=== PATIENT | female | born 1990 | race Two or more races ===

== ENCOUNTER 2021-06-25 08:59 | Outpatient (REF) | payer MEDICAID, SELFPAY ==
[2021-06-25 09:25] LABS: MANUAL DIFF FLAG NO
[2021-06-25 09:45] LABS: Basophils Absolute Auto 0.1 X10*3/uL (0.0-0.2); Eosinophils Absolute Auto 0.6 X10*3/uL (0.0-0.4); Eosinophils Percent Auto 9.8 % (0-4); Hemoglobin 13.4 g/dl (12.0-16.0); Imm Gran Abs Auto 0.02 X10*3/uL (0.00-0.03); Imm Gran Pct Auto 0.3 % (0.0-0.4); Lymphocytes Absolute Auto 1.7 X10*3/uL (1.2-4.9); Lymphocytes Percent Auto 28.5 % (20-40); Mean Corpuscular HGB Conc 32.7 g/dl (31.0-35.0); Mean Corpuscular Volume 85.6 fL (80.0-98.0); Monocytes Absolute Auto 0.4 X10*3/uL (0.1-1.2); Monocytes Percent Auto 6.4 % (2-11); Neutrophils Absolute Auto 3.3 x10*3/uL (2.0-8.3); Platelet Count 272 X10*3/uL (160-400); Red Blood Count 4.79 X10*6/uL (4.20-5.50); Red Cell Distribution Width 12.2 % (11.0-16.0); White Blood Count 6.1 X10*3/uL (4.8-10.8)
[2021-06-25 10:06] LABS: Alanine Aminotransferase 24 U/L (0-31); Albumin Level 3.9 g/dL (3.5-5.0); Alkaline Phosphatase 58 U/L (39-117); Anion Gap 12 (12-20); Aspartate Amino Transferase 17 U/L (5-31); Bilirubin Total 0.7 mg/dL (0.0-1.0); Blood Urea Nitrogen 7 mg/dL (9-16); Calcium 9.3 mg/dL (8.4-10.2); Carbon Dioxide 25 mmol/L (22-29); Chloride 104 mmol/L (96-108); Cholesterol 197 mg/dL; Estimated Glomerular Filt Rate > 60; Glucose Random 160 mg/dL (60-115); HDL Cholesterol 39 mg/dL; LDL Cholesterol Calculated 133 mg/dl; Sodium 137 mmol/L (135-145); Total Protein 7.2 g/dL (6.5-8.0); Triglycerides 127 mg/dL
[2021-06-25 10:28] LABS: Thyroid Stimulating Hormone 0.66 uIU/mL (0.32-4.0)
[2021-06-29 13:31] LABS: Glutamic acid decarboxylase Ab <5 IU/mL (<5)
== END 2021-06-25 09:00 | disposition home or self-care (01) ==
LOC: HO.LAB 08:59
PROVIDERS: PCP Internal Medicine; Visit Provider Internal Medicine
DX: Z00.01 Encounter for general adult medical examination with abnormal findings (principal); Z13.31 Encounter for screening for depression; E11.65 Type 2 diabetes mellitus with hyperglycemia; J45.909 Unspecified asthma, uncomplicated; R00.0 Tachycardia, unspecified
CPT/HCPCS: 36415; 80053; 80061; 84443; 85025; 86341

== ENCOUNTER 2021-09-16 11:13 | Outpatient (REF) | payer MEDICAID, SELFPAY ==
--- NOTE | ~2021-09-16 | XR_ITS ---
EXAMINATION: XR HIP, LEFT XR HIP, RIGHT XR PELVIS CLINICAL INFORMATION: Pain. COMPARISON: None TECHNIQUE: AP pelvis one view. 2 views each hip. FINDINGS: PELVIS: There is normal symmetry of SI joints and hip joints. There is solitary nail traversing the femoral neck on each side. No pelvic bone fracture seen. The soft tissues are normal. RIGHT HIP: There is solitary nail traversing the right femoral neck. No acute fracture seen. The soft tissues are normal. The joint space is maintained normal. LEFT HIP: There is a solitary nail traversing the left femoral neck. No visible acute fracture or dislocation seen. The soft tissues are normal. XR/XR pelvis 1-2V IMPRESSION: There is normal symmetry of bilateral SI joints and hip joints. There is a solitary nail traversing the femoral neck on each side for old healed fractures. No fracture line is seen at this time. There is no dislocation. The soft tissues are normal.
--- NOTE | ~2021-09-16 | XR_ITS ---
EXAMINATION: XR HIP, LEFT XR HIP, RIGHT XR PELVIS CLINICAL INFORMATION: Pain. COMPARISON: None TECHNIQUE: AP pelvis one view. 2 views each hip. FINDINGS: PELVIS: There is normal symmetry of SI joints and hip joints. There is solitary nail traversing the femoral neck on each side. No pelvic bone fracture seen. The soft tissues are normal. RIGHT HIP: There is solitary nail traversing the right femoral neck. No acute fracture seen. The soft tissues are normal. The joint space is maintained normal. LEFT HIP: There is a solitary nail traversing the left femoral neck. No visible acute fracture or dislocation seen. The soft tissues are normal. XR/XR hip RT min 2V IMPRESSION: There is normal symmetry of bilateral SI joints and hip joints. There is a solitary nail traversing the femoral neck on each side for old healed fractures. No fracture line is seen at this time. There is no dislocation. The soft tissues are normal.
--- NOTE | ~2021-09-16 | XR_ITS ---
EXAMINATION: XR HIP, LEFT XR HIP, RIGHT XR PELVIS CLINICAL INFORMATION: Pain. COMPARISON: None TECHNIQUE: AP pelvis one view. 2 views each hip. FINDINGS: PELVIS: There is normal symmetry of SI joints and hip joints. There is solitary nail traversing the femoral neck on each side. No pelvic bone fracture seen. The soft tissues are normal. RIGHT HIP: There is solitary nail traversing the right femoral neck. No acute fracture seen. The soft tissues are normal. The joint space is maintained normal. LEFT HIP: There is a solitary nail traversing the left femoral neck. No visible acute fracture or dislocation seen. The soft tissues are normal. XR/XR hip LT min 2V IMPRESSION: There is normal symmetry of bilateral SI joints and hip joints. There is a solitary nail traversing the femoral neck on each side for old healed fractures. No fracture line is seen at this time. There is no dislocation. The soft tissues are normal.
== END 2021-09-16 11:14 | disposition home or self-care (01) ==
LOC: HO.HOSX 11:13
PROVIDERS: Visit Provider Physician Assistant
DX: M70.61 Trochanteric bursitis, right hip (principal); M25.552 Pain in left hip; Z96.9 Presence of functional implant, unspecified
CPT/HCPCS: 72170; 73502; 99202

== ENCOUNTER 2021-09-26 12:09 | Emergency (ER) | payer MEDICAID, SELFPAY ==
[2021-09-26 12:16] VITALS: BP 131/94; PULSE 100; RESP 12; TEMP 36.6; O2SAT 98; BMI 25.4
--- NOTE | 2021-09-26 14:23 | ED.WOUNDLAC ---
HPI - Wound/Laceration General Chief Complaint: Wound/Laceration Stated Complaint: FINGER LAC Time Seen by Provider: 09/26/21 13:45 Source: patient Mode of arrival: ambulatory Limitations: no limitations Related Data Home Medications Medication Instructions Recorded Confirmed glipizide 10 mg tablet 10 mg PO BID 09/16/21 metformin 1,000 mg tablet 1,000 mg PO BID 09/16/21 Allergies Allergy/AdvReac Type Severity Reaction Status Date / Time No Known Allergies Allergy Verified 09/16/21 11:14 Review of Systems Review of Systems: Constitutional: No Weight loss, No Fever, No Chills ENT/Mouth: No Ear Pain, No Nasal Congestion, No Sinus Pain, No Hoarseness, No sore throat, No Rhinorrhea, No Swallowing Difficulty Cardiovascular: No Chest Pain, No SOB Respiratory: No Cough, No Sputum, No Wheezing Gastrointestinal: No Nausea, No Vomiting, No Diarrhea, No Constipation, No Abdominal pain Genitourinary: No Dysuria, No Urinary Frequency, No Hematuria, No Urinary Incontinence/retention, No Urgency, No Flank Pain Musculoskeletal: No joint pain, No Myalgias, No Joint Swelling Skin: No Skin Lesions, No rash Neuro: No Weakness, No Numbness, No Paresthesias Yes all other systems are reviewed and are negative Constitutional: Constitutional: Reports as per [facility] Past Medical History Attestation statement: The following information was validated with the patient. Medical History (Updated 09/16/21 @ 21:55 by Kristen Modi PA-C) Diabetes Surgical History (Updated 09/16/21 @ 11:13 by COTY Pena) History of hip surgery Physical Exam Vital Signs: Vital Signs: Last Vital Signs Temp 98 F 09/26/21 12:16 Pulse 100 09/26/21 12:16 Resp 12 09/26/21 12:16 BP 131/94 H 09/26/21 12:16 Pulse Ox 98 09/26/21 12:16 BMI result Body Mass Index 25.4 Const: General: cooperative, healthy appearing and no acute distress Orientation/consciousness: patient oriented x3 Limitations: no limitations HEENT: Head: Yes normal to inspection and Yes atraumatic Ears: hearing grossly normal bilaterally General nose exam: Normal external nose present Face and sinus: Yes normal facial exam Eyes: General: appearance normal, both eyes and all related structures EOM: EOMs intact bilaterally Neck: Neck: Yes normal visual inspection and Yes no meningeal signs Resp: Effort & Inspection: normal respiratory effort and no respiratory distress Auscultation: clear to auscultation bilaterally Cardio: Rate: regular rate Heart sounds: S1 normal heart sound present and S2 normal heart sound present Skin: Rashes: no rashes Wounds: no wounds Neuro: General: patient oriented x3, tone normal and no meningeal signs Gait exam (Neuro): Normal gait present Extrem: General: Yes normal to inspection MDM - Wound/Laceration Medical Records Attestation: I reviewed the patient's medical records. Lab Data Attestation: I reviewed the patient's lab results. Discharge Plan Discharge Prescriptions: No Action metformin 1,000 mg tablet 1,000 mg PO BID glipizide 10 mg tablet 10 mg PO BID
[2021-09-26] MEDS: Acetaminophen 325 MG TABLET 975 MG PO (14:35)
[2021-09-26] MEDS: Lidocaine HCl 1 % MPF 5 ML VIAL SUBCUT ×2 (14:35→14:36)
--- NOTE | 2021-09-26 15:20 | ED.WOUNDLAC ---
HPI - Wound/Laceration General Chief Complaint: Wound/Laceration Stated Complaint: FINGER LAC Time Seen by Provider: 09/26/21 13:45 Source: patient, family ( at bedside) and RN notes reviewed Limitations: no limitations History of Present Illness HPI narrative: This is a 30-year-old female, with a past medical history of diabetes, presents today with a right finger laceration which occurred 3 hours ago. She reports that she was washing her dishes and accidentally lacerated the webspace between the 4th and 5th digit of her right hand on a glass elo jar. She reports that she is able to move her finger and her hand without difficulty. She reports that she has sensation in her hand and good oracle hrms developer strength. She states that she is up-to-date with her tetanus vaccination. No other complaints or concerns at this time. Onset (ago): hour(s) Location: other Extremity Location: right: hand Place: home Patient tetanus UTD: Yes Context: accidental Associated symptoms: pain Related Data Home Medications Medication Instructions Recorded Confirmed glipizide 10 mg tablet 10 mg PO BID 09/16/21 metformin 1,000 mg tablet 1,000 mg PO BID 09/16/21 Previous Rx's Medication Instructions Recorded cephalexin 500 mg capsule 500 mg PO Q6H 7 days #28 caps 09/26/21 Allergies Allergy/AdvReac Type Severity Reaction Status Date / Time No Known Allergies Allergy Verified 09/16/21 11:14 Review of Systems Review of Systems: Constitutional : No Fever, No Chills, Cardiovascular : No Chest Pain, No SOB Respiratory : No Dyspnea Gastrointestinal : No abdominal pain Musculoskeletal : No Joint Swelling Skin : positive skin laceration, No Foreign bodies, No rash, No surrounding erythema Neuro : No Weakness, No Numbness/tingling Psych : No SI/HI/thoughts of self injury Yes all other systems are reviewed and are negative PMFSH Past Medical History Attestation statement: The following information was validated with the patient. Source: old records reviewed and obtained from family Medical History Diabetes Surgical History History of hip surgery Social History Social History Advance Directives: No Advance Directives Information Provided: No Physical Exam Vital Signs: Vital Signs: Last Vital Signs Temp 98 F 09/26/21 12:16 Pulse 100 09/26/21 12:16 Resp 12 09/26/21 12:16 BP 131/94 H 09/26/21 12:16 Pulse Ox 98 09/26/21 12:16 BMI result Body Mass Index 25.4 vital signs have been reviewed as normal and appeared to be correct. Blood pressure 131/94 Heart rate normal. Respiration rate normal. Temperature normal. Oxygen saturation normal. Appearance: Alert. Oriented X3. No acute distress. Head: Normal external exam. Normocephalic. Atraumatic. Eyes: PERRLA. EOMI. Conjunctiva and sclera normal. Eyelids normal. ENT: Pharynx normal. Uvula midline. Moist mucous membranes. Neck: Normal inspection. Neck supple. FROM. CVS: Normal heart rate and rhythm. Respiratory: No respiratory distress. Painless inspiration. Skin: Skin warm and dry. Normal skin color. Normal skin turgor. No rashes/lesions/lacerations noted. Extremities: To right hand between the 4th and 5th webspace patient has a 2 cm intermediate laceration. No active bleeding or foreign bodies or bony tenderness or obvious ligamentous or tendon injury noted. She has full range of motion of all fingers. Otherwise all other extremities exhibit normal range of motion nontender. Neuro: Oriented X 3. No motor deficit. No sensory deficit. Reflexes normal. Normal steady gait. No focal neuro deficits noted. Vascular: + radial pulses/+ 2 distal pedal pulses/+2 dorsalis pedis b/l. Normal cap refill. No cyanosis noted to upper extremity nails and lower extremity toes nails. Course Course Course Narrative: Patient now status post laceration repair with 4 simple running stitch. Tetanus is up-to-date no need to update at this time. No imaging indicated at this time. Will DC home with symptomatic treatment antibiotics along with instructions to return in 10-14 days for suture removal and to follow up prior if signs of infection. Patient understands agrees the plan. MDM - Wound/Laceration Medical Records Attestation: I reviewed the patient's medical records. Procedures Laceration Laceration 1: Site: hand Side (If applicable): right Size (cm): 2 Description: linear Depth: simple, single layer Local Anesthetic: lidocaine 1% Amount of anesthesia used (mL): 3 Pre-repair: wound explored, irrigated extensively and deep structures intact Skin layer closed with: nylon Size (cm): 4-0 Number of sutures: 4 Technique: simple, interrupted Discharge Plan Discharge Clinical Impression: Laceration Patient Disposition: Home, Self-Care Instructions: Care For Your Stitches (ED), Laceration (ED) Additional Instructions: Take the prescribed antibiotic as directed. You may return or follow up with primary care physician to have the sutures removed in 7-10 days. Keep wound clean and dry. Watch for any signs of infection including but not limited to fevers, chills, increased redness, or swelling. If any new or worsening symptoms occur, please return to be re-evaluated. Prescriptions: New cephalexin 500 mg capsule 500 mg PO Q6H 7 Days Qty: 28 0RF No Action metformin 1,000 mg tablet 1,000 mg PO BID glipizide 10 mg tablet 10 mg PO BID Interventions: ED Discharge Assessment Last Done: 09/26/21 15:49 Discharge Date/Time: 09/26/21 15:51
== END 2021-09-26 15:51 | disposition home or self-care (01) ==
PROVIDERS: Emergency Provider Emergency Medicine; PCP Internal Medicine
DX: S61.411A Laceration without foreign body of right hand, initial encounter (principal); W26.9XXA Contact with unspecified sharp object(s), initial encounter; Y93.9 Activity, unspecified; Y92.000 Kitchen of unspecified non-institutional (private) residence as the place of occurrence of the external cause; Y99.9 Unspecified external cause status; Z79.899 Other long term (current) drug therapy
CPT/HCPCS: 12001; 99283

== ENCOUNTER → 2021-10-29 11:51 | Outpatient (BNVA) | payer MEDICAID, SELFPAY | PROVIDERS: PCP Internal Medicine; Visit Provider Orthopaedic Surgery | DX: Z96.9 Presence of functional implant, unspecified (principal) | CPT/HCPCS: 99212 ==

== ENCOUNTER 2021-11-23 12:24 | Day surgery (SDC) | payer MEDICAID, SELFPAY ==
[2021-11-10 16:15] VITALS: BMI 25.4
--- NOTE | 2021-11-22 09:48 | P.CONAN_ITS ---
Documented by User: Mary Kate Smallwood NP 11/22/21 09:49 HPI - Anesthesia Eval Consult details Narrative: 31yo F for Right Removal Orthopedic Hardware hip PMFSH Active Problems Active Problems: All Active Problems (Updated 11/10/21 @ 16:15 by Zuri Gates RN) Trochanteric bursitis of right hip (Acute) Retained orthopedic hardware (Acute) Past Medical History Medical History (Updated 11/10/21 @ 16:15 by uZri Gates RN) Asthma Diabetes Hip pain, bilateral Surgical History Surgical History History of hip surgery Social History Social History Patient Tobacco Use Status: Former Tobacco user Tobacco use type: Cigarette Use of substances other than those prescribed or required for medical reasons: No Are you DNR?: No Advance Directives: No Advance Directives Information Provided: Yes Meds Allergies Allergy/AdvReac Type Severity Reaction Status Date / Time No Known Allergies Allergy Verified 11/10/21 16:09 Home Medications Medication Instructions Recorded Confirmed Last Taken Type glipizide 10 mg tablet 10 mg PO BID 09/16/21 11/10/21 Unknown History metformin 1,000 mg tablet 1,000 mg PO BID 09/16/21 11/10/21 Unknown History albuterol sulfate 90 mcg/actuation 2 puff inhalation QID PRN asthma 11/10/21 11/10/21 Unknown History aerosol inhaler (ProAir HFA) loratadine 10 mg tablet 1 tab PO DAILY 11/10/21 11/10/21 Unknown History Exam Exam Date and Time: November 22, 2021 0948 Height,Weight and Vital Signs: Height 5 ft Weight 58.967 kg Pertinent Lab Results Pertinent Lab Results: Laboratory Tests 06/25/21 06/25/21 09:24 09:24 WBC 6.1 Hgb 13.4 Hct 41.0 Plt Count 272 Sodium 137 Potassium 4.0 Chloride 104 Carbon Dioxide 25 BUN 7 L Creatinine 0.67 Assessment and Plan Assessment Anesthesia Assessment: Chart Reviewed Documented by User: Hardeep Casey MD 11/23/21 18:15 [facility] Past Medical History Medical History (Updated 11/10/21 @ 16:15 by Zuri Gates RN) Asthma Diabetes Hip pain, bilateral Functional capacity: independent ambulation Family History Family history of problems with anesthesia: No Surgical History Surgical History History of hip surgery History of Problems with Anesthesia: No Social History Social History Patient Tobacco Use Status: Former Tobacco user Tobacco use type: Cigarette Use of substances other than those prescribed or required for medical reasons: No Are you DNR?: No Advance Directives: No Advance Directives Information Provided: Yes Meds Allergies Allergy/AdvReac Type Severity Reaction Status Date / Time No Known Allergies Allergy Verified 11/10/21 16:09 Home Medications Medication Instructions Recorded Confirmed Last Taken Type glipizide 10 mg tablet 10 mg PO BID 09/16/21 11/10/21 Unknown History metformin 1,000 mg tablet 1,000 mg PO BID 09/16/21 11/10/21 Unknown History albuterol sulfate 90 mcg/actuation 2 puff inhalation QID PRN asthma 11/10/21 11/10/21 Unknown History aerosol inhaler (ProAir HFA) loratadine 10 mg tablet 1 tab PO DAILY 11/10/21 11/10/21 Unknown History Exam Airway Mallampati Class: III TM Dist: >3cm Neck ROM: Full Loose/Missing/Broken Teeth: Yes Heart: S1,S2 Lungs: b/l breath sounds Assessment and Plan Assessment Anesthesia Assessment: Anesthesia Plan Discussed Final Anesthetic Review Family History of Problems with Anesthesia: No History of Problems with Anesthesia: No NPO: Yes ASA Class: II Final Preanesthetic Review: Meds/Allgs Chart Reviewed, Consent Obtained/Reviewed and Anes Risks/Benef Reviewed Patient Risk: Intermediate Procedure Risk: Intermediate Anesthetic Plan Anesthetic Plan: GA Disposition: Standard PACU
[2021-11-23] VITALS (8 sets, daily range): BP systolic 91–127; BP diastolic 53–88; PULSE 93–120; RESP 16–18; TEMP 36.3–36.9; O2SAT 98–100; BMI 27.3
--- NOTE | ~2021-11-23 | FL_ITS ---
EXAMINATION: XR FLUOROSCOPY WITH IMAGES CLINICAL INFORMATION: Hardware removal COMPARISON: Radiographs pelvis and right hip 09/16/2021 TECHNIQUE: Fluoroscopy performed by Dr. Conner Scrhoeder. Fluoroscopy time: 0.1 minutes. Cumulative Dose: 1.39 mGy. DAP: 0.0241 Gy-cm2. Images: 2. FINDINGS: There is an orthopedic screw in the right hip. A clamp is directed at the screw head on one of the 2 views. FL/FL guidance in OR IMPRESSION: Fluoroscopy for orthopedic procedure.
[2021-11-23 13:05] LABS: UPreg QC Valid YES; Urine Pregnancy NEGATIVE (NEGATIVE)
[2021-11-23 13:09] LABS: Glucose, Whole Blood 145 mg/dL (60-115)
[2021-11-23] MEDS: Lactated Ringers 1,000 ML 100 ML IVCONT (13:19)
--- NOTE | 2021-11-23 15:49 | P.BOP_ITS ---
Brief Operative Note Date of Service: 11/23/21 Pre-op diagnosis: retained ortho hardware right femur Post-op diagnosis: same Procedure: removal of hardware right hip Implants: none Surgeon: Conner Schroeder MD Anesthesia: GETA and local Was an Mechanical Shovel Operator used for this Procedure?: No Estimated blood loss (mL): 5 IV fluids (mL): 300 Pathology: none sent Condition: stable Disposition: PACU
[2021-11-23] MEDS: Acetaminophen 325 MG TABLET 650 MG PO (16:43)
--- NOTE | 2021-11-24 07:32 | W.PM.OPN ---
Operative Note Operative Note Date of Service: 11/23/21 Narrative: Date of Service: 11/23/21 Pre-op diagnosis: retained ortho hardware right femur Post-op diagnosis: same Procedure: removal of hardware right hip Implants: none Surgeon: Conner Schroeder MD Anesthesia: GETA and local Was an Board Handler used for this Procedure?: No Estimated blood loss (mL): 5 IV fluids (mL): 300 Pathology: none sent Condition: stable Disposition: PACU Patient was brought to the operating room and placed supine on the surgical table. She was prepped and draped in standard sterile fashion and a time out was called to identify proper site, proper procedure and IV antibiotics per weight were administered. I began buy identifying the screw which was anterior and easily palpable. A 1 cm incision was made over the anterior thigh after local administration. I spread down to the screw. The screw head appeared to be a standard AO cannulated screw but upon closer inspection had an inner , smaller area for engagement. A wide variety of screw head were tried but none fit and the one that most closely fit openly began to strip the screw head with forceful attempts to remove it. Options at this point included making a much larger incision and using a trephine over the screw which, given the location of the screw, was not wallace. Cutting the screw head and shaft fluch to the cortex would have also required a larger incision and would not have allowed for removal of remaining hardware which the patient had indicated she would like to have done. The screw had been placed around 20 years ago and op notes are not available. The decision was made to leave the screw in place. The incision was closed with subq and absorbable suture and skin glue. Sterile dressings were applied. Patient was awakened from anesthesia and brought to the recovery room is stable conditions. There were no known complications.
== END 2021-11-23 17:15 | disposition home or self-care (01) ==
PROVIDERS: Nurse Practitioner; PCP Internal Medicine; Visit Provider Orthopaedic Surgery
PROC: (CPT 20680; principal; 2021-11-23 14:10)
DX: Z47.2 Encounter for removal of internal fixation device (principal); T84.84XA Pain due to internal orthopedic prosthetic devices, implants and grafts, initial encounter; G89.18 Other acute postprocedural pain; Y79.8 Miscellaneous orthopedic devices associated with adverse incidents, not elsewhere classified; Y92.9 Unspecified place or not applicable; Z96.9 Presence of functional implant, unspecified; J45.909 Unspecified asthma, uncomplicated; E11.9 Type 2 diabetes mellitus without complications; Z79.84 Long term (current) use of oral hypoglycemic drugs; Z79.899 Other long term (current) drug therapy; Z87.891 Personal history of nicotine dependence
CPT/HCPCS: 20680; 81025; 82947; J0690; J1100; J2250; J2370; J2405; J2795; J3010

== ENCOUNTER 2022-07-13 15:22 | Outpatient (REF) | payer MEDICAID, SELFPAY ==
[2022-07-13 15:36] LABS: MANUAL DIFF FLAG NO
[2022-07-13 16:51] LABS: Basophils Absolute Auto 0.1 X10*3/uL (0.0-0.2); Basophils Percent Auto 0.5 % (0-2); Eosinophils Absolute Auto 0.4 X10*3/uL (0.0-0.4); Eosinophils Percent Auto 3.8 % (0-4); Hematocrit 43.8 % (37.0-47.0); Hemoglobin 14.8 g/dl (12.0-16.0); Imm Gran Abs Auto 0.04 X10*3/uL (0.00-0.03); Imm Gran Pct Auto 0.4 % (0.0-0.4); Lymphocytes Absolute Auto 2.3 X10*3/uL (1.2-4.9); Lymphocytes Percent Auto 20.2 % (20-40); Mean Corpuscular HGB Conc 33.8 g/dl (31.0-35.0); Mean Corpuscular Hemoglobin 28.7 pg (27.0-33.0); Mean Corpuscular Volume 84.9 fL (80.0-98.0); Monocytes Absolute Auto 0.5 X10*3/uL (0.1-1.2); Monocytes Percent Auto 4.2 % (2-11); Neutrophils Percent Auto 70.9 % (45-73); Platelet Count 318 X10*3/uL (160-400); Red Blood Count 5.16 X10*6/uL (4.20-5.50); Red Cell Distribution Width 12.3 % (11.0-16.0); White Blood Count 11.3 X10*3/uL (4.8-10.8)
[2022-07-13 16:57] LABS: Estimated Average Glucose 249 mg/dL; Hemoglobin A1c % 10.3 %
[2022-07-13 17:19] LABS: Alanine Aminotransferase 26 U/L (0-31); Albumin Level 4.4 g/dL (3.5-5.0); Alkaline Phosphatase 91 U/L (39-117); Anion Gap 16 (12-20); Aspartate Amino Transferase 17 U/L (5-31); Bilirubin Total 0.5 mg/dL (0.0-1.0); Blood Urea Nitrogen 9 mg/dL (9-16); Carbon Dioxide 26 mmol/L (22-29); Chloride 102 mmol/L (96-108); Cholesterol 255 mg/dL; Estimated Glomerular Filt Rate > 60; Glucose Random 172 mg/dL (60-115); HDL Cholesterol 40 mg/dL; LDL Cholesterol Calculated 158 mg/dl; Potassium 4.3 mmol/L (3.3-5.1); Sodium 140 mmol/L (135-145); Triglycerides 288 mg/dL
[2022-07-13 17:37] LABS: Thyroid Stimulating Hormone 0.73 uIU/mL (0.32-4.0)
[2022-07-13 19:29] LABS: Microalbum/Creatinine Ratio Ur 257.5 ug/mg cr
[2022-07-14 02:52] LABS: CT PCR NOT DETECTED (Not Detect.); NG PCR NOT DETECTED (Not Detect.)
== END 2022-07-13 15:23 | disposition home or self-care (01) ==
LOC: HO.LAB 15:22
PROVIDERS: PCP Internal Medicine; Visit Provider Internal Medicine
DX: Z00.00 Encounter for general adult medical examination without abnormal findings (principal); J45.909 Unspecified asthma, uncomplicated; F32.9 Major depressive disorder, single episode, unspecified; E78.00 Pure hypercholesterolemia, unspecified; E11.65 Type 2 diabetes mellitus with hyperglycemia
CPT/HCPCS: 0353U; 80053; 80061; 82043; 83036; 84443; 85025

== ENCOUNTER 2022-08-02 08:05 | Outpatient (REF) | payer MEDICAID, SELFPAY | END 2022-08-02 08:06 | disposition home or self-care (01) | LOC: HO.HOSX 08:05 | PROVIDERS: Visit Provider Physician Assistant | DX: Z13.89 Encounter for screening for other disorder (principal) ==

== ENCOUNTER 2023-05-30 12:59 | Outpatient (REF) | payer MEDICAID, SELFPAY ==
[2023-05-30 17:41] LABS: Estimated Average Glucose 171 mg/dL; Hemoglobin A1c % 7.6 % (<6.0)
[2023-05-30 17:43] LABS: Alanine Aminotransferase 27 U/L (0-31); Albumin Level 4.2 g/dL (3.5-5.0); Alkaline Phosphatase 81 U/L (39-117); Anion Gap 13 (12-20); Aspartate Amino Transferase 15 U/L (5-31); Bilirubin Total 0.3 mg/dL (0.0-1.0); Blood Urea Nitrogen 7 mg/dL (9-16); Calcium 9.4 mg/dL (8.4-10.2); Carbon Dioxide 24 mmol/L (22-29); Chloride 103 mmol/L (96-108); Estimated Glomerular Filt Rate > 60; Glucose Random 218 mg/dL (60-115); Potassium 4.3 mmol/L (3.3-5.1); Sodium 136 mmol/L (135-145); Total Protein 8.1 g/dL (6.5-8.0)
== END 2023-05-30 13:00 | disposition home or self-care (01) ==
LOC: HO.HKASLDS 12:59
PROVIDERS: Visit Provider Internal Medicine
DX: E11.65 Type 2 diabetes mellitus with hyperglycemia (principal); E78.00 Pure hypercholesterolemia, unspecified; F32.5 Major depressive disorder, single episode, in full remission; I10 Essential (primary) hypertension
CPT/HCPCS: 36415; 80053; 83036

== ENCOUNTER 2023-09-05 15:38 | Outpatient (REF) | payer MEDICAID, SELFPAY | END 2023-09-05 15:39 | disposition home or self-care (01) | LOC: HO.HKASLDS 15:38 | PROVIDERS: Visit Provider Internal Medicine | DX: Z13.89 Encounter for screening for other disorder (principal) ==

== ENCOUNTER 2023-10-11 13:28 | Outpatient (REF) | payer MEDICAID, SELFPAY | END 2023-10-11 13:29 | disposition home or self-care (01) | LOC: HO.HKASLDS 13:28 | PROVIDERS: PCP Internal Medicine; Visit Provider Internal Medicine | DX: Z13.89 Encounter for screening for other disorder (principal) ==

== ENCOUNTER 2023-11-25 09:45 | Outpatient (REF) | payer MEDICAID, SELFPAY ==
[2023-11-25 10:24] LABS: MANUAL DIFF FLAG NO
[2023-11-25 10:32] LABS: Basophils Absolute Auto 0.1 X10*3/uL (0.0-0.2); Basophils Percent Auto 0.9 % (0-2); Eosinophils Absolute Auto 0.5 X10*3/uL (0.0-0.4); Eosinophils Percent Auto 6.5 % (0-4); Hematocrit 44.3 % (37.0-47.0); Hemoglobin 14.9 g/dl (12.0-16.0); Imm Gran Abs Auto 0.02 X10*3/uL (0.00-0.03); Imm Gran Pct Auto 0.3 % (0.0-0.4); Lymphocytes Absolute Auto 1.8 X10*3/uL (1.2-4.9); Lymphocytes Percent Auto 22.5 % (20-40); Mean Corpuscular HGB Conc 33.6 g/dl (31.0-35.0); Mean Corpuscular Hemoglobin 28.9 pg (27.0-33.0); Mean Corpuscular Volume 85.9 fL (80.0-98.0); Mean Platelet Volume 10.9 fL (9.4-12.3); Monocytes Absolute Auto 0.5 X10*3/uL (0.1-1.2); Monocytes Percent Auto 6.8 % (2-11); Neutrophils Absolute Auto 5.1 x10*3/uL (2.0-8.3); Platelet Count 289 X10*3/uL (160-400); Red Blood Count 5.16 X10*6/uL (4.20-5.50); Red Cell Distribution Width 12.7 % (11.0-16.0)
[2023-11-25 11:07] LABS: Alanine Aminotransferase 22 U/L (0-31); Albumin Level 4.5 g/dL (3.5-5.0); Alkaline Phosphatase 69 U/L (39-117); Anion Gap 13 (12-20); Aspartate Amino Transferase 17 U/L (5-31); Bilirubin Total 0.6 mg/dL (0.0-1.0); Blood Urea Nitrogen 11 mg/dL (9-16); Calcium 10.1 mg/dL (8.4-10.2); Carbon Dioxide 24 mmol/L (22-29); Chloride 102 mmol/L (96-108); Cholesterol 188 mg/dL (<200); Estimated Glomerular Filt Rate > 60; Glucose Random 320 mg/dL (60-115); HDL Cholesterol 41 mg/dL (>40); LDL Cholesterol Calculated 127 mg/dL (<100); Potassium 5.1 mmol/L (3.3-5.1); Sodium 134 mmol/L (135-145); Total Protein 8.3 g/dL (6.5-8.0); Triglycerides 102 mg/dL (<150)
[2023-11-25 11:08] LABS: Estimated Average Glucose 252 mg/dL; Hemoglobin A1c % 10.4 % (<6.0)
[2023-11-25 11:09] LABS: Creatinine Urine 45.08 mg/dL; Microalbum/Creatinine Ratio Ur 337.1 ug/mg cr (<30)
== END 2023-11-25 09:46 | disposition home or self-care (01) ==
LOC: HO.LAB 09:45
PROVIDERS: PCP Internal Medicine; Visit Provider Internal Medicine
DX: E11.65 Type 2 diabetes mellitus with hyperglycemia (principal); E78.00 Pure hypercholesterolemia, unspecified; F32.9 Major depressive disorder, single episode, unspecified; J45.909 Unspecified asthma, uncomplicated; N30.01 Acute cystitis with hematuria
CPT/HCPCS: 36415; 80053; 80061; 82043; 82570; 83036; 85025

== ENCOUNTER 2024-04-06 08:51 | Outpatient (REF) | payer MEDICAID, SELFPAY ==
--- OUTSIDE RECORDS SUMMARY | 2024-04-06 08:53 | XMS_ITS | Clinical Summary ---
Author Organization [facility] [facility] ity Address [address] [place] [address] Care Team Providers Care Probation And Parole Officer Name Role Phone Unavailable Primary Care Provider Unavailabl e Social History Tobacco Use Types Packs/Day Years Used Date Smoking Tobacco: Never Assessed Sex and Gender Information Value Date Recorded Sex Assigned at Not on file Gender Identity Not on file Sexual Orientation Not on file Plan of Treatment Health Maintenance Due Date Last Done Comments DTaP,Tdap,and Td Vaccines (1 - Tdap) 10/13/2010 Hepatitis B Vaccines (1 of 3 - 19+ 3-dose series) 10/13/2010 Cervical Cancer Screening: P ap Smear 10/13/2012 Depression Screening 10/13/2023 HIV Screening 10/13/2023 Hepatitis C Screening 10/13/2023 Social Influencers of Health Screening 10/13/2023 COVID-19 Vaccine ( - 2023-2 5 season) 2023 Influenza Vaccine (#1) 2023 HIB Vaccines Aged Out No longer eligi ble based on patient's age to complete this topic HPV Vaccines Aged Out No longer eligi ble based on patient's age to complete this topic Hepatitis A Vaccines Aged Out No long er eligible based on patient's age to complete this topic IPV Vaccines Aged Out No longer eligi ble based on patient's age to complete this topic MMR Vaccines Aged Out No longer eligi ble based on patient's age to complete this topic Meningococcal ACWY Vaccine Aged Out N o longer eligible based on patient's age to complete this topic Pneumococcal Vaccine: Pediat rics (0 to 5 Years) and At-Risk Patients (6 to 64 Years) Aged Out No longer eligible b ased on patient's age to complete this topic RSV Immunization Patients Un danae 20 months Aged Out No longer eligible b ased on patient's age to complete this topic Varicella Vaccines Aged Out No longer eligible based on patient's age to complete this topic
--- OUTSIDE RECORDS SUMMARY | 2024-04-06 08:53 | XMS_ITS | Encounter Summary ---
Author Organization [employer] Address [address] [place] [address] Care Team Providers Care Accounting Policy Consultant Name Role Phone Unavailable Primary Care Provider Unavailabl e Encounter Details Date Type Department Care Team (Late st Contact Info) Description 01/16/2024 Telephone [facility] [address] [place] [address] Adebayo Esteban, NEELAM [address] [place] [address] Social History Tobacco Use Types Packs/Day Years Used Date Smoking Tobacco: Never Smokeless Tobacco: Never Alcohol Use Standard Drinks/Week Comments Never 0 (1 standard drink = 0.6 oz pur e alcohol) Comments Unknown Sex and Gender Information Value Date Recorded Sex Assigned at Female 12/18/2023 8:36 AM EDT Legal Sex Female 8:32 AM EDT Gender Identity Female 12/18/2023 8:36 AM EDT Sexual Orientation Choose not to disclose 2023 8:36 AM EDT documented as of this encounter Miscellaneous Notes * Telephone Encounter - Abby Murphy - 01/16/2024 8:[address] esteban can u send patient medication for pain and infection . documented in this encounter Plan of Treatment Upcoming Encounters Date Type Department Care Team (Late st Contact Info) Description 04/18/2024 2:00 PM EST Office Visit [facility] [address] [place] [address] Lissette Sanches documented as of this encounter Visit Diagnoses Not on filedocumented in this encounter
--- OUTSIDE RECORDS SUMMARY | 2024-04-06 08:53 | XMS_ITS | Encounter Summary ---
Author Organization [employer] Address [address] [place] [address] Care Team Providers Care Business Unit Director Name Role Phone Unavailable Primary Care Provider Unavailabl e Reason for Visit * Reason Onset Date Comments cx would like call to rs 02/20/2024 Encounter Details Date Type Department Care Team ([facility] Contact Info) Description 02/20/2024 Telephone [facility] [address] [place], [place] [id number] Salas Ayala, NEELAM [address] [place] [address] cx would like call to rs Social History Tobacco Use Types Packs/Day Years [...] encounter Miscellaneous Notes * Telephone Encounter - Valencia Rae - 02/20/2024 1:08 PM EST Patient called in to cancel and reschedule appt. Patient has been informed that provider is only here on a limited schedule and cancelling appt will place patient back on the waiting list and they will wait for a call back to reschedule. Patient understood and will wait for a new appt (message has been sent to both [facility] and [facility] for reference) DR documented in this encounter Plan of Treatment Upcoming Encounters Date Type Department Care Team ([facility] Contact Info) Description 04/18/2024 2:00 PM EST Office Visit [facility] [address] [place] [address] Lissette Sanches documented as of this encounter Visit Diagnoses Not on filedocumented in this encounter
--- OUTSIDE RECORDS SUMMARY | 2024-04-06 08:53 | XMS_ITS | Clinical Summary ---
Author Organization [employer] Address [address] [facility] [address] [place] [address] Care Team Providers Care Commercial Representative Name Role Phone Unavailable Primary Care Provider Unavailabl e Allergies No known active allergies Medications Januvia 100 MG tablet Take 100 mg by mouth Once per day. 11/27/2023 Active metFORMIN XR (Glucophage-XR) 500 MG 24 hr tablet Take 1,000 mg by mouth 2 times daily. 11/27/2023 Active Ventolin HFA 108 (90 Base) MCG/ACT inhaler INHALE 2 PUFFS 4 TIMES A DAY NEEDED ASTHMA 11/27/2023 Active atorvastatin (Lipitor) 20 MG tablet Take 20 mg by mouth Once per day. 07/13/2023 Active Blood Glucose Monitoring Suppl (FreeStyle Lite) w/Device kit CHECK SUGARS TWICE A DAY 11/27/2023 Active Jardiance 25 MG Take 25 mg by mouth in the morning. 11/27/2023 Active fluconazole (Diflucan) 150 MG tablet 1 TAB(S) ONCE THEN AFTER 1 WEEK 11/27/2023 Active Arnuity Ellipta 100 MCG/ACT inhaler INHALE 1 PUFF EVERY 24 HOURS 11/27/2023 Active glipiZIDE XL (Glucotrol XL) 5 MG 24 hr tablet Take 5 mg by mouth Once per day. 11/27/2023 Active FREESTYLE LITE test strip CHECK SUGARS TWICE A DAY 11/28/2023 Active ibuprofen 800 MG tablet TAKE 1 TABLET BY MOUTH THREE TIMES A DAY NEEDED FOR PAIN FOR 10 DAYS 07/18/2023 Active FreeStyle lancets CHECK SUGARS TWICE A DAY 11/21/2023 Active losartan (Cozaar) 50 MG tablet Take 50 mg by mouth Once per day. 11/27/2023 Active montelukast (Singulair) 10 MG tablet Take 10 mg by mouth Once per day. 11/27/2023 Active sulfamethoxazole -trimethoprim (Bactrim DS) 800-160 MG tablet Take 1 tablet by mouth every 12 (twelve) hours. 05/31/2023 Active ibuprofen 600 MG tabletIndication s:Dental abscess Take 1 tablet (600 mg) by mouth every 6 (six) hours if needed for mild pain for up to 20 doses. 20 tablet 01/17/2024 Active acetaminophen (Tylenol) 500 MG tabletIndication s:Dental abscess Take 1 tablet (500 mg) by mouth every 6 (six) hours if needed for mild pain for up to 20 doses. 20 tablet 01/17/2024 Active Active Problems No known active problems Encounters Date Type Department Care Team Description 02/20/2024 Telephone [facility] [address] [place] [address] Salas Ayala DMD cx would like call to 01/31/2024 3:00 PM EST Office Visit [facility] [address] [place] [address] Salas Ayala DMD History of tooth extraction, unspecified edentulism class (Primary Dx) 01/17/2024 3:30 PM EST Office Visit [facility] [address] [place] [address] Shalom Beckford DMD Dental abscess (Primary Dx) 01/16/2024 Telephone [facility] [address] [place] [address] Adebayo Pagan DMD from Last 3 Months Social History Tobacco Use Types Packs/Day Years Used Date Smoking Tobacco: Never Smokeless Tobacco: Never Tobacco Cessation:Counseling Given: Not Answered Alcohol Use Standard Drinks/Week Comments Never 0 (1 standard drink = 0.6 oz pur e alcohol) Comments Unknown Sex and Gender Information Value Date Recorded Sex Assigned at Female 12/18/2023 8:36 AM EDT Legal Sex Female 8:32 AM EDT Gender Identity Female 12/18/2023 8:36 AM EDT Sexual Orientation Choose not to disclose 2023 8:36 AM EDT Plan of Treatment Upcoming Encounters Date Type Department Care Team (Late st Contact Info) Description 04/18/2024 2:00 PM EST Office Visit [facility] [address] [place] [address] Lissette Sanches Health Maintenance Due Date Last Done Comments Dental Oral Exam 1991 Dental Prophylaxis 1991 Dental X-Ray: Bitewings 1991 Depression Screening 1991 HIV Screening 1991 SDOH Screening 1991 Alcohol/Substance Use Screening 2003 Family Planning (PISQ) 10/13/2006 Hepatitis C Screening 10/13/2009 DTaP/Tdap/Td Vaccines (1 - Tdap) 10/13/2010 Hepatitis B Vaccines (1 of 3 - 19+ 3-dose series) 10/13/2010 Pap Smear 10/13/2012 Cervical Cancer Screening 10/13/2021 HPV/Cotest 10/13/2021 COVID-19 Vaccine ( - 2023-2 5 season) 2023 Influenza Vaccine (#1) 2023 Tobacco Screening 01/30/2025 01/31/2024 Dental X-Ray: Full Mouth 12/18/2026 12/18/2023 Zoster Vaccines (1 of 2) 10/13/2041 RSV Patients and Pa tients Aged 60 years or older (1 - 1-dose 75+ series) 10/13/2066 HIB Vaccines Aged Out No longer eligi [...] patient's age to complete this topic Meningococcal Vaccine Aged Out No matthew evette eligible based on patient's age to complete this topic Pneumococcal Vaccine: Pediat rics (0 to 5 Years) and At-Risk Patients (6 to 64 Years) Aged Out No longer eligi ble based on patient's age to complete this topic RSV under 20 months Aged Out No longe r eligible based on patient's age to complete this topic Rotavirus Vaccines Aged Out No longer eligible based on patient's age to complete this topic Procedures Procedure Name Priority Date/Time Associated Diagnosis Comments 32 EXTRACTION, ERUPTED TOOTH OR EXPOSED ROOT (ELEVATION AND/OR FORCEPS REMOVAL) Routine 01/31/2024 3:00 PM EST 1 EXTRACTION, ERUPTED TOOTH OR EXPOSED ROOT (ELEVATION AND/OR FORCEPS REMOVAL) Routine 01/31/2024 3:00 PM EST ADJUNCTIVE GENERAL SERVICES - PROFESSIONAL VISITS - CASE PRESENTATION, SUBSEQUENT TO DETAILED AND EXTENSIVE TREATMENT PLANNING Routine 01/17/2024 3:30 PM EST Dental abscess ADJUNCTIVE GENERAL SERVICES - UNCLASSIFIED TREATMENT - PALLIATIVE TREATMENT OF DENTAL PAIN - PER VISIT Routine 01/17/2024 3:30 PM EST Dental abscess PANORAMIC RADIOGRAPHIC IMAGE Routine 12/18/2023 11:30 AM EDT from Last 3 Months or Most Recently Relevant to Health Maintenance Insurance [facility] MEDICAID STAND ADULT
--- OUTSIDE RECORDS SUMMARY | 2024-04-06 08:53 | XMS_ITS | Patient Health Record ---
Author Organization [facility] Address [address] [facility] [address] [facility] [address] [place] [address] Care Team Providers Care Addiction Professional Name Role Phone NINO CRISTIANO Unavailable [phone] Reason For Referral No Information Plan Of Treatment No Information Insurance Providers Payer Name Payer Address Payer Phone Subscriber Number Group Number Insured Name Patient Relationship to Insured Coverage Start Date Coverage End Date [facility] [address] [address] [place] [address] BONG MICHELLE Self - patient is the insured
[2024-04-06 09:22] LABS: Estimated Average Glucose 166 mg/dL; Hemoglobin A1C 199.0739 umol/L; Hemoglobin A1c % 7.4 % (<6.0); Total Hemoglobin (HGBA1C) 3455.5666 umol/L
[2024-04-06 09:44] LABS: Alanine Aminotransferase 62 U/L (0-31); Albumin Level 4.5 g/dL (3.5-5.0); Alkaline Phosphatase 49 U/L (39-117); Anion Gap 13 (12-20); Aspartate Amino Transferase 37 U/L (5-31); Bilirubin Total 0.8 mg/dL (0.0-1.0); Blood Urea Nitrogen 10 mg/dL (9-16); Calcium 9.4 mg/dL (8.4-10.2); Carbon Dioxide 24 mmol/L (22-29); Chloride 107 mmol/L (96-108); Cholesterol 90 mg/dL (<200); Estimated Glomerular Filt Rate > 60; Glucose Fasting 146 mg/dL (60-99); HDL Cholesterol 36 mg/dL (>40); LDL Cholesterol Calculated 37 mg/dL (<100); Potassium 4.5 mmol/L (3.3-5.1); Sodium 139 mmol/L (135-145); Total Protein 8.1 g/dL (6.5-8.0); Triglycerides 86 mg/dL (<150)
== END 2024-04-06 08:52 | disposition home or self-care (01) ==
LOC: HO.LAB 08:51
PROVIDERS: PCP Internal Medicine; Visit Provider Internal Medicine
DX: B37.31 Acute candidiasis of vulva and vagina (principal); E11.65 Type 2 diabetes mellitus with hyperglycemia; E78.00 Pure hypercholesterolemia, unspecified; F31.9 Bipolar disorder, unspecified; R80.8 Other proteinuria
CPT/HCPCS: 36415; 80053; 80061; 83036

== ENCOUNTER 2024-07-23 09:22 | Outpatient (REF) | payer MEDICAID, SELFPAY ==
--- OUTSIDE RECORDS SUMMARY | 2024-07-23 09:59 | XMS_ITS | Encounter Summary ---
Author Organization [employer] Address [address] [facility] 7t [place] [address] Care Team Providers Care Food Services Manager Name Role Phone Unavailable Primary Care Provider Unavailabl e Reason for Visit * Reason Onset Date Comments cx would like call to rs 02/20/2024 Encounter Details Date Type Department Care Team ([facility] st Contact Info) Description 02/20/2024 Telephone [facility] [address] [place], [place] [phone] Salas Ayala, NEELAM [address] [place] [address] cx would like call to rs Social [...] Miscellaneous Notes * Telephone Encounter - [place] aRe - 02/20/2024 1:08 PM EST Patient called in to cancel and reschedule appt. Patient has been informed that provider is only here on a limited schedule and cancelling appt will place patient back on the waiting list and they will wait for a call back to reschedule. Patient understood and will wait for a new appt (message has been sent to both [facility] and [facility] for reference) documented in this encounter Plan of Treatment Not on file documented as of this encounter Visit Diagnoses Not on filedocumented in this encounter
--- OUTSIDE RECORDS SUMMARY | 2024-07-23 09:59 | XMS_ITS | Patient Health Record ---
Author Organization [facility] Address [address] [address] Care Team Providers Care Draw Machine Operator Name Role Phone NINO CRISTIANO Unavailable [phone] Reason For Referral No Information Plan Of Treatment No Information Insurance Providers Payer Name Payer Address Payer Phone Subscriber Number Group Number Insured Name Patient Relationship to Insured Coverage Start Date Coverage End Date [facility] [address] [address] [place] [address] BONG MICHELLE Self - patient is the insured
--- OUTSIDE RECORDS SUMMARY | 2024-07-23 09:59 | XMS_ITS | Clinical Summary ---
Author Organization [employer] Address [address] [facility] [address] [place] [address] Care Team Providers Care Threshing Operator Name Role Phone Unavailable Primary Care Provider [...] Active Active Problems No known active problems Social History Tobacco Use Types Packs/Day Years [...] 2023 8:36 AM EDT Plan of Treatment Health Maintenance Due Date [...] 5 Years) and At-Risk Patients (6 to 49) Years) Aged Out No longer elig ible based on patient's age to complete this topic RSV under 20 months Aged Out No longe r eligible based on patient's age to complete this topic Rotavirus Vaccines Aged Out No longer eligible based on patient's age to complete this topic Procedures Procedure Name Priority Date/Time Associated Diagnosis Comments PANORAMIC RADIOGRAPHIC IMAGE Routine 12/18/2023 11:30 AM EDT from Last 3 Months or Most Recently Relevant to Health Maintenance Insurance [facility] MEDICAID STAND ADULT
--- OUTSIDE RECORDS SUMMARY | 2024-07-23 09:59 | XMS_ITS | Clinical Summary ---
Author Organization [employer] [facility] Address [address] [place] [address] Care Team Providers Care Cesspool Cleaner Name Role Phone Unavailable Primary Care Provider Unavailabl e Social History Tobacco Use Types Packs/Day Years Used Date Smoking Tobacco: Never Assessed Comments Unknown Sex and Gender Information Value Date Recorded Sex Assigned at Not on file Legal Sex Female 1:37 PM EDT Gender Identity Not on file Sexual Orientation Not on file Plan of Treatment Health Maintenance Due Date Last Done Comments DTaP,Tdap,and Td Vaccines (1 - Tdap) 10/13/2010 Hepatitis B Vaccines (1 of 3 - 19+ 3-dose series) 10/13/2010 Cervical Cancer Screening: P ap Smear 10/13/2012 Depression Screening 10/13/2023 HIV Screening 10/13/2023 Hepatitis C Screening 10/13/2023 Social Influencers of Health Screening 10/13/2023 COVID-19 Vaccine (2023-2 5 season) 2023 Influenza Vaccine (Season Ended) 2024 HIB Vaccines Aged Out No longer eligi [...] patient's age to complete this topic Meningococcal B Vaccine Aged Out No l onger eligible based on patient's age to complete [...]
--- OUTSIDE RECORDS SUMMARY | 2024-07-23 09:59 | XMS_ITS | Encounter Summary ---
Author Organization [employer] Address [address] [place] [address] Care Team Providers Care Benefits Processor Name Role Phone Unavailable Primary Care Provider Unavailabl e Encounter Details Date Type Department Care Team (Late st Contact Info) Description 01/16/2024 Telephone [facility]ULT [facility] [address] [place] [address] Adebayo Esteban, DMD [address] [place] [address] Social History Tobacco Use Types Packs/Day Years [...]
[2024-07-23 10:54] LABS: Estimated Average Glucose 237 mg/dL; Hemoglobin A1C 326.3144 umol/L; Hemoglobin A1c % 9.9 % (<6.0); Total Hemoglobin (HGBA1C) 3871.0635 umol/L
[2024-07-23 11:38] LABS: Alanine Aminotransferase 49 U/L (0-31); Albumin Level 4.7 g/dL (3.5-5.0); Anion Gap 15 (12-20); Aspartate Amino Transferase 28 U/L (5-31); Bilirubin Total 0.7 mg/dL (0.0-1.0); Blood Urea Nitrogen 11 mg/dL (9-16); Calcium 9.9 mg/dL (8.4-10.2); Carbon Dioxide 26 mmol/L (22-29); Chloride 101 mmol/L (96-108); Estimated Glomerular Filt Rate > 60; Glucose Random 233 mg/dL (60-115); Potassium 4.6 mmol/L (3.3-5.1); Sodium 137 mmol/L (135-145); Total Protein 8.5 g/dL (6.5-8.0)
[2024-07-23 12:38] LABS: Alkaline Phosphatase 62 U/L (39-117)
== END 2024-07-23 09:23 | disposition home or self-care (01) ==
LOC: HO.LAB 09:22
PROVIDERS: PCP Internal Medicine; Visit Provider Internal Medicine
DX: E11.9 Type 2 diabetes mellitus without complications (principal); R19.7 Diarrhea, unspecified; R74.01 Elevation of levels of liver transaminase levels; Z68.27 Body mass index [BMI] 27.0-27.9, adult
CPT/HCPCS: 36415; 80053; 83036

== ENCOUNTER 2024-12-07 08:54 | Outpatient (REF) | payer MEDICAID, SELFPAY ==
--- OUTSIDE RECORDS SUMMARY | 2024-12-07 08:57 | XMS_ITS | Clinical Summary ---
Author Organization [facility] Address [address] [place] [address] Care Team Providers Care Head Pastry Chef Name Role Phone Unavailable Primary Care Provider [...] Cervical Cancer Screening: P ap Smear 10/13/2012 HIV Screening 10/13/2023 Hepatitis C Screening 10/13/2023 Social Influencers of Health Screening 10/13/2023 Depression Screening 03/13/2024 COVID-19 Vaccine (2023-2 5 season) 2024 Influenza Vaccine (#1) 2024 HIB Vaccines Aged Out No longer [...] 5 Years) and At-Risk Patients (6 to 49 Years) Aged Out No longer eligible b ased on patient's age to complete this topic RSV Immunization Patients Un danae 20 months Aged Out No longer eligible b ased on patient's age to complete this topic Varicella Vaccines Aged Out No longer eligible based on patient's age to complete this topic
--- OUTSIDE RECORDS SUMMARY | 2024-12-07 08:57 | XMS_ITS | Encounter Summary ---
Author Organization [employer] Address [address] [facility] [address] [place] [address] Care Team Providers Care Shoe Cementer Name Role Phone Unavailable Primary Care Provider Unavailabl e Reason for Visit * Reason Onset Date Comments cx would like call to rs 02/20/2024 Encounter Details Date Type Department Care Team ([facility] Contact Info) Description 02/20/2024 Telephone [facility] [address] [place] [address] CarmelSalas ross, DMD [address] [place] [address] cx would like call to Social History Tobacco Use Types Packs/Day Years [...] appt (message has been sent to both [facility] and [facility] for reference) DR documented in this encounter Plan of Treatment Not on file documented as of this encounter Visit Diagnoses Not on filedocumented in this encounter
--- OUTSIDE RECORDS SUMMARY | 2024-12-07 08:57 | XMS_ITS | Clinical Summary ---
Author Organization [employer] Address [address] [facility] [address] [place] [address] Care Team Providers Care Sergeant Of Corrections Name Role Phone Unavailable Primary Care Provider [...] Encounters Date Type Department Care Team Description 11/13/2024 1:00 PM EDT Office Visit [facility] [address] [place] [address] Lalito Pollard Dental calculus (Primary Dx) 09/12/2024 Telephone [facility] [address], [place] [phone] Laci Peace from Last 3 Months Social History Tobacco [...] not to disclose 2023 8:36 AM EDT Last Filed Vital Signs Vital Sign Reading Time Taken Comments Blood Pressure 122/78 11/13/2024 12:55 PM EDT Pulse 90 11/13/2024 12:55 PM EDT Temperature - - Respiratory Rate - - Oxygen Saturation - - Inhaled Oxygen Concentration - - Weight - - Height - - Body Mass Index - - Plan of Treatment Health Maintenance Due Date Last Done Comments Depression Screening 1991 HIV Screening 1991 SDOH Screening 1991 Disability Screening 1991 Alcohol/Substance Use Screening 2003 Family Planning (PISQ) 10/13/2006 HPV Vaccines (1 - 3-dose series) 10/13/2006 Hepatitis C Screening 10/13/2009 DTaP/Tdap/Td Vaccines (1 - Tdap) 10/13/2010 Hepatitis B Vaccines (1 of 3 - 19+ 3-dose series) 10/13/2010 Pap Smear 10/13/2012 Cervical Cancer Screening 10/13/2021 HPV/Cotest 10/13/2021 COVID-19 Vaccine (1 - 4-2 5 season) 2024 Influenza Vaccine (#1) 2024 Dental Oral Exam 03/02/2025 08/30/2024 Dental Prophylaxis 03/02/2025 08/30/2024 Dental X-Ray: Bitewings 08/31/2025 08/30/2024 Tobacco Screening 11/13/2025 11/13/2024 Dental X-Ray: Full Mouth 09/01/2027 025, 12/18/2023 Zoster Vaccines (1 of 2) 10/13/2041 RSV Patients and Patients Aged 60 years or older (1 - [...] age to complete this topic Pneumococcal Vaccine: Pediatrics (0 to 5 Years) and At-Risk Patients (6 to 49) Years Aged Out No longer eligible b ased on patient's age to complete this topic RSV under 20 months Aged Out No longe r eligible based on patient's age to complete this topic Rotavirus Vaccines Aged Out No longer eligible based on patient's age to complete this topic Procedures Procedure Name Priority Date/Time Associated Diagnosis Comments CASE PRESENTATION, DETAILED AND EXTENSIVE TREATMENT PLANNING Routine 11/13/2024 1:00 PM EDT ORAL HYGIENE INSTRUCTIONS Routine 2024 1:00 PM EDT LR PERIODONTAL SCALING AND ROOT PLANING - 4 OR MORE TEETH PER QUADRANT Routine 11/13/2024 1:00 PM EDT UR PERIODONTAL SCALING AND ROOT PLANING - 4 OR MORE TEETH PER QUADRANT Routine 11/13/2024 1:00 PM EDT PROPHYLAXIS - ADULT Routine 08/30/2024 3 :00 PM EDT INTRAORAL - COMPLETE SERIES OF RADIOGRAPHIC IMAGES Routine 08/30/2024 3:00 PM EDT COMPREHENSIVE ORAL EVALUATION - NEW OR ESTABLISHED PATIENT Routine 08/30/2024 3:00 PM EDT from Last 3 Months or Most Recently Relevant to Health Maintenance Insurance [facility] MEDICAID STAND ADULT
--- OUTSIDE RECORDS SUMMARY | 2024-12-07 08:57 | XMS_ITS | Encounter Summary ---
Author Organization [email or web address] Address [address] [facility] 7[address] [place] [address] Care Team Providers Care Clinical Lab Assistant Name Role Phone Unavailable Primary Care Provider Unavailabl e Encounter Details Date Type Department Care Team (Late st Contact Info) Description 01/16/2024 Telephone [facility]ULT [facility] [address] [place], [place] [phone] Adebayo Esteban, DMD [address] [place] [address] Social History Tobacco Use Types Packs/Day Years [...]
[2024-12-07 09:39] LABS: Alanine Aminotransferase 25 U/L (0-31); Albumin Level 4.7 g/dL (3.5-5.0); Alkaline Phosphatase 65 U/L (39-117); Anion Gap 12 (12-20); Aspartate Amino Transferase 19 U/L (5-31); Blood Urea Nitrogen 10 mg/dL (9-16); Calcium 9.3 mg/dL (8.4-10.2); Carbon Dioxide 25 mmol/L (22-29); Chloride 107 mmol/L (96-108); Estimated Glomerular Filt Rate > 60; Potassium 5.2 mmol/L (3.3-5.1); Sodium 139 mmol/L (135-145); Total Protein 8.2 g/dL (6.5-8.0)
[2024-12-07 11:36] LABS: Microalbum/Creatinine Ratio Ur 425.8 ug/mg cr (<30)
== END 2024-12-07 08:55 | disposition home or self-care (01) ==
LOC: HO.LAB 08:54
PROVIDERS: PCP Internal Medicine; Visit Provider Internal Medicine
DX: E11.65 Type 2 diabetes mellitus with hyperglycemia (principal); E78.00 Pure hypercholesterolemia, unspecified; G56.02 Carpal tunnel syndrome, left upper limb; I10 Essential (primary) hypertension; R74.01 Elevation of levels of liver transaminase levels
CPT/HCPCS: 36415; 80053; 82043; 82570; 83036